=== PATIENT | male | born 1950 | race Caucasian/White ===

== ENCOUNTER → 2019-11-13 | Outpatient (CLI) | payer MEDICARE, OTHER ==
[~2019-11-13] MED LIST: ASPIRIN E.C.325 MG PO; CALCIUM CARBONATE; MOTRIN 800800 MG/TAB PO
== END ==
LOC: MHCPAIN 13:14
DX: M47.817 Spondylosis without myelopathy or radiculopathy, lumbosacral region (principal); M54.16 Radiculopathy, lumbar region
CPT/HCPCS: G0463

== ENCOUNTER → 2019-12-13 | Outpatient (CLI) | payer MEDICARE | LOC: MHCPAIN 13:54 | DX: M43.17 Spondylolisthesis, lumbosacral region (principal); M54.5 Low back pain | CPT/HCPCS: J1100; Q9967 ==

== ENCOUNTER → 2019-12-20 | Outpatient (CLI) | payer MEDICARE | LOC: COL.VAS 14:00 | DX: M79.89 Other specified soft tissue disorders (principal) ==

== ENCOUNTER → 2021-01-15 | Outpatient (CLI) | payer MEDICARE ==
[~2021-01-15] VITALS: Ht 177.8 cm; Wt 99.3 kg
[~2021-01-15] MED LIST changes: +DIFLUCAN200 MG PO; +K-DUR20 MEQ PO; +LASIX 20MG TABL20 MG PO; +LIPITOR 40MG TA40 MG PO; +NORCO 325 MG-7.1 TAB PO; +TOPROL XL 50MG50 MG PO
[2021-01-15 06:50] VITALS: BP 153/84; PULSE 66
[2021-01-15 07:38] VITALS: BP 150/85; BP 165/80; PULSE 104; PULSE 74
[2021-01-15 07:40] VITALS: BP 150/85; PULSE 104
[2021-01-15 07:41] VITALS: BP 158/83; PULSE 89
[2021-01-15 07:42] VITALS: BP 163/83; PULSE 93
[2021-01-15 07:43] VITALS: BP 148/83; PULSE 77
== END ==
LOC: COL.CARD 06:08
DX: I10 Essential (primary) hypertension (principal); R07.9 Chest pain, unspecified
CPT/HCPCS: A9500; J2785

== ENCOUNTER → 2021-02-03 | Outpatient (CLI) | payer MEDICARE | LOC: COL.VAS 14:15 | DX: I35.1 Nonrheumatic aortic (valve) insufficiency (principal); I51.7 Cardiomegaly ==

== ENCOUNTER 2022-07-31 23:06 | Emergency (ER) | payer MEDICARE ==
[~2022-07-31] VITALS: Ht 177.8 cm; Wt 95.9 kg
[2022-07-31 23:23] VITALS: TEMP 97.2
[2022-08-01 00:04] LABS: BASO # 0.1 K/mm3 (0.0-0.2); BASO % 0.9 % (0.0-2.0); EOS # 0.1 K/mm3 (0.0-0.7); EOS % 0.8 % (0.0-4.0); GRAN # 7.9 K/mm3 (1.4-6.5); GRAN % 73.3 % (42.2-75.2); HEMATOCRIT 40.1 % (42.0-52.0); HEMOGLOBIN 13.9 g/dl (13.5-18.0); LYMPH # 1.4 K/mm3 (1.2-3.4); LYMPH % 12.8 % (20.0-51.0); MEAN CELL VOLUME 96 fl (80.0-100.0); MEAN CORPUSCULAR HEMOGLOBIN 33 pg (27-31); MEAN CORPUSCULAR HGB CONC 35 g/dl (33.0-37.0); MEAN PLATELET VOLUME 8.7 fl (7.4-10.4); MONO # 1.3 K/mm3 (0.1-0.6); MONO % 11.8 % (1.7-9.3); PLATELET COUNT 268 K/mm3 (130-400); RED BLOOD COUNT 4.17 M/mm3 (4.20-5.60)
[2022-08-01 00:19] LABS: ALBUMIN 3.7 gm/dL (3.4-4.8); BILIRUBIN,TOTAL 0.5 mg/dL (0.2-1.2); C-REACTIVE PROTEIN 0.42 mg/dL (0.00-0.50); CALCIUM 9.2 mg/dL (8.4-10.2); CREATININE, serum 0.79 mg/dL (0.72-1.25); TOTAL PROTEIN 7.1 gm/dL (6.2-8.1)
[2022-08-01 00:27] LABS: ERYTHROCYTE SEDIMENTATION RATE 14 mm/hr (0-30)
[2022-08-01 02:17] VITALS: BP 154/78; PULSE 80
== END 2022-08-01 02:17 | disposition home or self-care (01) ==
LOC: COL.ER 23:06
PROVIDERS: Nurse Practitioner Family
DX: M25.462 Effusion, left knee (principal); M25.562 Pain in left knee; R79.1 Abnormal coagulation profile; Z86.79 Personal history of other diseases of the circulatory system; Z95.828 Presence of other vascular implants and grafts; Z79.82 Long term (current) use of aspirin; Z79.02 Long term (current) use of antithrombotics/antiplatelets

== ENCOUNTER → 2022-08-02 | Outpatient (CLI) | payer MEDICARE | LOC: COL.VAS 07:24 | DX: M79.662 Pain in left lower leg (principal); M79.89 Other specified soft tissue disorders; R79.89 Other specified abnormal findings of blood chemistry ==